=== PATIENT | male | born 1960 | race Caucasian/White ===

== ENCOUNTER → 2017-01-09 | Outpatient (CLI) | payer MEDICARE, OTHER ==
--- NOTE | 2017-01-09 16:45 | Diagnostic Imaging Report ---
Indication: Cough Technique: 2 views of the chest Comparison: 08/27/2015. Findings: Lungs and pleural spaces are clear. Heart size is normal. Bones are unremarkable.. Impression: No acute process
== END | disposition home or self-care (01) ==
LOC: RAD 15:54
DX: R05 Cough (principal)
CPT/HCPCS: 71020